=== PATIENT | female | born 1995 | race Caucasian/White ===

== ENCOUNTER 2017-08-21 13:05 | Emergency (ER) | payer OTHER ==
[2017-08-21] MEDS ORDERED: ONDANSETRON 4 MG TAB.RAPDIS PO ONE (13:43)
[2017-08-21] MEDS ORDERED: IBUPROFEN 800 MG TABLET PO ONE (13:43)
--- NOTE | 2017-08-21 13:44 | ER Document Report ---
HPI - HPI Patient complains to provider of: Fever, vomiting, sore throat Onset: Yesterday Onset/Duration: Gradual Quality of pain: Achy Pain Level: 2 Context: Patient states that she had a headache 3 days ago although it is currently resolved. Patient reports developing a fever yesterday that went as high as 103.6. Patient has had nausea and vomiting 3 episodes yesterday although denies any vomiting today. Patient denies any diarrhea. Patient does report sore throat symptoms that started yesterday. Patient also complains of right lower back pain. Patient does report recent exposure to [id number]-kct-mouth disease at home. Patient denies any history of IV drug use. Associated Symptoms: Fever, Headache - 3 days ago, now gone, Vomiting - Yesterday, Sore throat. denies: Chest pain, Productive cough Exacerbated by: Denies Relieved by: Denies Similar symptoms previously: No Recently seen / treated by doctor: No - ROS ROS below otherwise negative: Yes Systems Reviewed and Negative: Yes All other systems reviewed and negative - CONSTITUTIONAL Constitutional: REPORTS: Fever - EENT EENT: REPORTS: Sore Throat - NEURO Neurology: REPORTS: Headache - 3 days ago, now gone. DENIES: Dizzinesss / Vertigo - CARDIOVASCULAR Cardiovascular: DENIES: Chest pain - RESPIRATORY Respiratory: DENIES: Trouble Breathing, Coughing - GASTROINTESTINAL Gastrointestinal: REPORTS: Nausea, Patient vomiting. DENIES: Abdominal Pain, Diarrhea - URINARY Urinary: DENIES: Dysuria - MUSCULOSKELETAL Musculoskeletal: REPORTS: Back Pain. DENIES: Extremity pain, Neck Pain - DERM Skin Color: Normal Skin Problems: None Past Medical History - General Information source: Patient - Social History Smoking Status: Never Smoker Frequency of alcohol use: None Drug Abuse: None Occupation: None Lives with: Family Family History: Reviewed & Not Pertinent - Medical History Medical History: Negative Renal/ Medical History: Denies: Hx Peritoneal Dialysis Past Surgical History: Reports: Hx Section Vertical Provider Document - CONSTITUTIONAL Agree With Documented VS: Yes Exam Limitations: No Limitations General Appearance: WD/WN, No Apparent Distress Notes: Nontoxic appearance - INFECTION CONTROL TRAVEL OUTSIDE OF THE [place] IN LAST 30 DAYS: No - HEENT HEENT: Atraumatic, Normocephalic, Pharyngeal Tenderness, Pharyngeal Erythema. negative: Pharyngeal Exudate, Tympanic Membrane Red, Tympanic Membrane Bulging - NECK Neck: Lymphadenopathy-Left, Lymphadenopathy-Right Notes: No meningismus, negative Kernig and Brudzinski - RESPIRATORY Respiratory: Breath Sounds Normal, No Respiratory Distress, Chest Non-Tender O2 Sat by Pulse Oximetry: 97 - CARDIOVASCULAR Cardiovascular: Regular Rate, Regular Rhythm, No Murmur - GI/ABDOMEN Gastrointestinal: Abdomen Soft, Abdomen Non-Tender, No Organomegaly, Normal Bowel Sounds - BACK Back: Abnormal Inspection - Lower lumbar tenderness, CVA Tenderness-Right - MUSCULOSKELETAL/EXTREMETIES Musculoskeletal/Extremeties: MAEW, FROM, Non-Tender - NEURO Level of Consciousness: Awake, Alert, Appropriate Motor/Sensory: No Motor Deficit - DERM Integumentary: Warm, Dry, No Rash Course - Re-evaluation Re-evalutation: 08/21/17 15:51 Patient's vital signs stable, no concern for sepsis at this time. Patient nontoxic in appearance. Afebrile during ER stay. Discussed worsening signs or symptoms that patient should return immediately for. Patient verbalized understanding and agrees with plan of care. Discussed med regimen with patient and breast-feeding concerns. - Vital Signs Vital signs: Temp Pulse Resp BP Pulse Ox 98.9 F 118 H 18 126/76 H 97 08/21/17 13:09 08/21/17 13:09 08/21/17 13:09 08/21/17 13:09 08/21/17 13:09 - Laboratory Laboratory results interpreted by me: 08/21/17 15:15 Labs- Entire Visit 08/21/17 08/21/17 14:21 14:21 Urine Color YELLOW Urine Appearance TURBID Urine pH 6.0 Ur Specific Cherry 1.006 Urine Protein NEGATIVE Urine Glucose (UA) NEGATIVE Urine Ketones NEGATIVE Urine Blood SMALL H Urine Nitrite NEGATIVE Urine Bilirubin NEGATIVE Urine Urobilinogen NEGATIVE Ur Leukocyte Esterase LARGE H Urine WBC (Auto) >182 Urine RBC (Auto) 41 Urine Bacteria (Auto) 3+ Squamous Epi Cells Auto 51 Amorphous Sediment Auto TRACE Urine Mucus (Auto) RARE Urine Ascorbic Acid NEGATIVE Group A Strep Rapid NEGATIVE 08/21/17 15:51 Labs- Entire Visit 08/21/17 08/21/17 14:21 14:21 Urine Color YELLOW Urine Appearance TURBID Urine pH 6.0 Ur Specific Cherry 1.006 Urine Protein NEGATIVE Urine Glucose (UA) NEGATIVE Urine Ketones NEGATIVE Urine Blood SMALL H Urine Nitrite NEGATIVE Urine Bilirubin NEGATIVE Urine Urobilinogen NEGATIVE Ur Leukocyte Esterase LARGE H Urine WBC (Auto) >182 Urine RBC (Auto) 41 Urine Bacteria (Auto) 3+ Squamous Epi Cells Auto 51 Amorphous Sediment Auto TRACE Urine Mucus (Auto) RARE Urine Ascorbic Acid NEGATIVE Group A Strep Rapid NEGATIVE Discharge - Discharge Clinical Impression: Sore throat UTI (urinary tract infection) Qualifiers: Urinary tract infection type: site unspecified Hematuria presence: with hematuria Qualified Code(s): N39.0 - Urinary tract infection, site not specified Nausea & vomiting Qualifiers: Vomiting type: unspecified Vomiting Intractability: non-intractable Qualified Code(s): R11.2 - Nausea with vomiting, unspecified Condition: Stable Disposition: HOME, SELF-CARE Instructions: Antinausea Medication ([facility]), Rocephin ([facility]), Sore Throat ([facility]), Trimethoprim-Sulfa ([facility]), Urinary Tract Infection ([facility]), Vomiting ([facility]) Additional Instructions: Return immediately for any new or worsening symptoms Followup with your primary care provider, call tomorrow to make a followup appointment Return for reevaluation if your symptoms are not improving increase oral fluids Throat culture and urine culture pending, we will call if you need any different treatment Prescriptions: Ondansetron HCl [Zofran 4 mg Tablet] 1 - 2 tab PO Q6 PRN #12 tablet PRN Reason: Sulfamethoxazole/Trimethoprim [Bactrim Ds Tablet] 1 each PO BID #20 tablet Referrals: [facility] [Provider Group] - Follow up as needed [facility] [Provider Group] - Follow up as needed
[2017-08-21 14:42] LABS: AMORPHOUS SEDIMENT,URINE TRACE /HPF; APPEARANCE,URINE TURBID; BILIRUBIN,URINE NEGATIVE (NEGATIVE); GLUCOSE, URINE NEGATIVE (NEGATIVE); KETONES,URINE NEGATIVE (NEGATIVE); LEUKOCYTE ESTERASE,URINE LARGE (NEGATIVE); NITRITE,URINE NEGATIVE (NEGATIVE); PROTEIN,URINE NEGATIVE (NEGATIVE); URINE SPECIFIC GRAVITY 1.006; UROBILINOGEN,URINE NEGATIVE mg/dL (<2.0)
[2017-08-21] MEDS ORDERED: LIDOCAINE 1% INJ-PF (10 MG/ML) 30 ML SDV INJ ONE (15:05)
[2017-08-21] MEDS ORDERED: CEFTRIAXONE INJ 1000 MG VIAL IM ONE (15:05)
[2017-08-21] MEDS ORDERED: SULFAMETHOXAZOLE/TRIMETHOPRIM 800-160 MG TABLET PO ONE (15:50)
[2017-08-21 16:05] VITALS: BP 106/53
== END 2017-08-21 16:15 | disposition home or self-care (01) ==
LOC: ER 13:05
DX: J02.9 Acute pharyngitis, unspecified (principal); N39.0 Urinary tract infection, site not specified; R11.2 Nausea with vomiting, unspecified; R50.9 Fever, unspecified; M54.9 Dorsalgia, unspecified
CPT/HCPCS: 99283; 96372; 87070; 87086; 87880; 81001; S0119; J3490; J0696